=== PATIENT | male | born 2000 | race Caucasian/White ===

== ENCOUNTER 2022-10-10 06:49 | Emergency (ER) | payer BC, OTHER ==
[2022-10-10] MEDS: Acetaminophen 500 MG Tab PO ONE (07:04)
[2022-10-10 07:43] LABS: RESPIRATORY SYNCYTIAL VIR NAA NEGATIVE (NEGATIVE)
[2022-10-10 07:46] LABS: CORONAVIRUS COVID-19 NAA NEGATIVE (NEGATIVE)
== END 2022-10-10 07:50 | disposition home or self-care (01) ==
LOC: KA.ED 06:49
DX: J11.1 Influenza due to unidentified influenza virus with other respiratory manifestations (principal); Z72.0 Tobacco use; Z20.822 Contact with and (suspected) exposure to COVID-19
CPT/HCPCS: 0241U; 99283; A9270-GY

== ENCOUNTER 2024-11-24 04:11 | Emergency (ER) | payer BC ==
[2024-11-24] MEDS: Ketorolac 30 MG/ML SDV IM ONE (04:36)
== END 2024-11-24 06:12 | disposition home or self-care (01) ==
LOC: KA.ED 04:11 → SUPCPDRO 04:11 → KA.ED 06:12
DX: U07.1 COVID-19 (principal)
CPT/HCPCS: 87428; 96372; 99283; 99284; J1885

== ENCOUNTER 2025-03-05 10:43 | Emergency (ER) | payer BC ==
[2025-03-05 11:19] LABS: BASOPHILS ABSOLUTE AUTO 0.01 10^3/uL (0.00-0.10); BASOPHILS PERCENT AUTO 0.2 % (0.0-1.0); EOSINOPHILS ABSOLUTE AUTO 0.13 10^3/uL (0.10-0.30); EOSINOPHILS PERCENT AUTO 2.6 % (1.0-3.0); LYMPHOCYTES ABSOLUTE AUTO 1.89 10^3/uL (1.00-4.00); LYMPHOCYTES PERCENT AUTO 37.4 % (20.0-40.0); MEAN CORPUSCULAR HEMOGLOBIN 32.2 pg (27.0-31.0); MEAN CORPUSCULAR HGB CONC 33.3 g/dL (32.0-36.0); MEAN CORPUSCULAR VOLUME 96.6 fL (82.0-92.0); MEAN PLATELET VOLUME 8.6 fL (7.4-10.4); MONOCYTES PERCENT AUTO 5.9 % (2.0-8.0); NEUTROPHILS ABSOLUTE AUTO 2.73 10^3/uL (2.50-7.00); NEUTROPHILS PERCENT AUTO 53.9 % (50.0-70.0); PLATELET COUNT,PLT 210 10^3/uL (150-400); RED BLOOD CELL COUNT 4.66 10^6/uL (4.50-6.00); RED CELL DISTRIBUTION WIDTH 11.7 % (11.5-14.5); WHITE BLOOD CELL COUNT,WBC 5.06 10^3/uL (5.00-10.00)
[2025-03-05 11:36] LABS: ALBUMIN 4.08 g/dL (3.40-5.00); ANION GAP 11.8 mmol/L (5-15); BILIRUBIN TOTAL 0.9 mg/dL (0.2-1.0); CALCIUM 9.2 mg/dL (8.7-10.3); CARBON DIOXIDE,CO2 28.8 mmol/L (21.0-32.0); CREATININE 0.96 mg/dL (0.51-1.17); EST CRCL DRUG DOSING (CG) 125.28 mL/min; POTASSIUM,K 4.6 mmol/L (3.5-5.1); PROTEIN TOTAL,TP 7.2 g/dL (6.4-8.2)
[2025-03-05] MEDS: Albuterol/Ipratropium 3.0-0.5 MG/3 ML Neb Soln NEB ONE (12:00)
== END 2025-03-05 13:00 | disposition home or self-care (01) ==
LOC: KA.ED 10:43
DX: R07.9 Chest pain, unspecified (principal); R42 Dizziness and giddiness; Z86.16 Personal history of COVID-19; Z87.891 Personal history of nicotine dependence
CPT/HCPCS: 36415; 71046; 80053; 84484; 85025; 86140; 93005; 93010; 99284; 99285; A9270-GY